=== PATIENT | female | born 1940 | race African-American/Black ===

== ENCOUNTER 2018-06-24 16:47 | Emergency (ER) | payer OTHER ==
[~2018-06-24] VITALS: Ht 162.6 cm; Wt 96.6 kg
--- NOTE | 2018-06-24 17:29 | EKG ---
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: ADAM : 1940 Requested By: Kar Romo Order Number: [id number] MD: Sanju Frances Measurements Intervals [place] Rate: 81 P: 6 VA: 159 QRS: 56 QRSD: 82 T: 29 QT: 358 QTc: 416 Interpretive Statements Sinus arrhythmia Normal tracing No previous ECG available for comparison Electronically Signed On 06-24-2018 17:29:18 CDT by Sanju Frances [email or web address] ��������������������������������������������� <ELECTRONICALLY SIGNED> ���������������������������������������� By: Sanju Frances MD, [facility] ��������������������������������������������� 06/24/18 1729 1656 1656 Sanju Frances MD, FAC /EPI
[2018-06-24 17:44] LABS: ANION GAP 8 mmol/L (7-16); BUN 32 mg/dL (7-18); CALCIUM 9.4 mg/dL (8.5-10.1); CHLORIDE 106 mmol/L (98-107); CO2 24 mmol/L (21-32); CREATININE 1.6 mg/dL (0.6-1.0); GLUCOSE 106 mg/dL (74-106); POTASSIUM 4.9 mmol/L (3.5-5.1); SODIUM 138 mmol/L (136-145); TROPONIN-I <0.06 ng/mL (<0.06)
[2018-06-24 18:31] LABS: HEMATOCRIT 35.2 % (37.0-47.0); HEMOGLOBIN 11.7 gm/dL (12.0-15.0); MCH 30.3 pg (26.0-34.0); MCHC 33.3 g/dL (28.0-37.0); MCV 90.8 fL (80.0-100.0); RBC 3.87 mil/uL (4.20-5.00); RDW 14.8 % (10.5-14.5); WBC 7.5 thou/uL (4.0-11.0)
[2018-06-24] MEDS ORDERED: NORCO 5-325 TA1 EACH PO (20:30)
[2018-06-24 20:42] VITALS: BP 168/69
== END 2018-06-24 20:42 | disposition home or self-care (01) ==
LOC: ER 16:47
PROVIDERS: Physician Assistant
DX: S09.8XXA Other specified injuries of head, initial encounter (principal); R51 Headache; R07.89 Other chest pain; M25.511 Pain in right shoulder; V89.2XXA Person injured in unspecified motor-vehicle accident, traffic, initial encounter; Y93.89 Activity, other specified; Y92.89 Other specified places as the place of occurrence of the external cause; Y99.8 Other external cause status